=== PATIENT | female | born 1995 | race Caucasian/White ===

== ENCOUNTER 2022-08-01 12:17 | Outpatient (CLI) | payer BC ==
[2022-08-01 12:58] LABS: BHCG - Serum Negative (NEGATIVE); Pregs Control Background? CLEAR/WHITE (CLR/WHITE); Pregs Control Bar Appear? YES (CONTROL BAR)
== END 2022-08-01 12:18 | disposition home or self-care (01) ==
LOC: NM 12:17
PROVIDERS: ATTEND Internal Medicine Endocrinology, Diabetes & Metabolism
DX: Z32.00 Encounter for pregnancy test, result unknown (principal); C73 Malignant neoplasm of thyroid gland
CPT/HCPCS: 36415; 79005; 84703; A9517

== ENCOUNTER 2022-08-12 12:27 | Outpatient (CLI) | payer BC | END 2022-08-12 12:28 | disposition home or self-care (01) | LOC: NM 12:27 | PROVIDERS: ATTEND Internal Medicine Endocrinology, Diabetes & Metabolism | DX: C73 Malignant neoplasm of thyroid gland (principal) | CPT/HCPCS: 78018 ==